=== PATIENT | female | born 1985 | race Two or more races ===

== ENCOUNTER → 2020-02-18 08:33 | Outpatient (BNVA) | payer OTHER, SELFPAY | PROVIDERS: Family Provider Nurse Practitioner; PCP Nurse Practitioner; Visit Provider Family Medicine | DX: E03.9 Hypothyroidism, unspecified (principal) | CPT/HCPCS: 80053; 84443; 85025 ==

== ENCOUNTER → 2021-03-22 13:24 | Outpatient (BNVA) | payer OTHER, SELFPAY | PROVIDERS: Family Provider Nurse Practitioner; PCP Family Medicine; Visit Provider Family Medicine | DX: Z13.6 Encounter for screening for cardiovascular disorders (principal); E03.9 Hypothyroidism, unspecified; M77.12 Lateral epicondylitis, left elbow | CPT/HCPCS: 80053; 84439; 84443; 85025 ==

== ENCOUNTER → 2021-05-31 11:41 | Outpatient (BNVA) | payer OTHER, SELFPAY | PROVIDERS: Family Provider Nurse Practitioner; PCP Family Medicine; Visit Provider Family Medicine | DX: E03.9 Hypothyroidism, unspecified (principal) | CPT/HCPCS: 84439; 84443 ==

== ENCOUNTER 2022-02-21 10:11 | Outpatient (CLI) | payer OTHER, SELFPAY ==
--- NOTE | 2022-02-21 10:28 | XRR_ITS ---
PROCEDURE INFORMATION: Exam: XR Left Knee Exam date and time: 02/21/2022 10:28 AM Age: 36 years old Clinical indication: Left; Patient HX: Lt knee pain when walking x 2wks ago, inflammation off and on for awhile getting worse. Anteriorly around patella. Most of the pressure is distal to the patella on lateral side and shoots back to the posterior side laterally; Additional info: Acute left knee pain TECHNIQUE: Imaging protocol: Radiologic exam of the Left knee. Views: 3 views. COMPARISON: No relevant prior studies available. FINDINGS: Bones/joints: Normal. Soft tissues: Normal. XR/XR knee LT 3V* [id number] IMPRESSION: No acute findings.
== END 2022-02-21 10:12 | disposition home or self-care (01) ==
LOC: RAD 10:18
PROVIDERS: PCP Family Medicine; Visit Provider Family Medicine
DX: Z13.6 Encounter for screening for cardiovascular disorders (principal); M25.562 Pain in left knee; E03.9 Hypothyroidism, unspecified
CPT/HCPCS: 73562; 80053; 84439; 84443; 85025

== ENCOUNTER 2023-10-22 15:01 | Outpatient (CLI) | payer OTHER, SELFPAY ==
--- NOTE | 2023-10-22 15:09 | USR_ITS ---
PROCEDURE INFORMATION: Exam: US Soft Tissue Head and Neck, Thyroid Exam date and time: 10/22/2023 3:35 PM Age: 37 years old Clinical indication: Abnormal findings; Abnormal thyroid lab test; Additional info: Acquired hypothyroidism TECHNIQUE: Imaging protocol: Real-time ultrasound scan of the neck with image documentation. Exam focused on the thyroid. COMPARISON: No relevant prior studies available. FINDINGS: Right thyroid lobe: No nodules. Left thyroid lobe: No nodules. Isthmus: No nodules. Other findings: Both thyroid lobes demonstrate a heterogeneous appearance consistent with chronic thyroiditis. I see no dominant mass or cyst. US/US thyroid [id number] IMPRESSION: Findings consistent with chronic thyroiditis
== END 2023-10-22 15:02 | disposition home or self-care (01) ==
LOC: RAD 15:01
PROVIDERS: PCP Family Medicine; Visit Provider Nurse Practitioner Family
DX: E09.9 Drug or chemical induced diabetes mellitus without complications (principal)
CPT/HCPCS: 76536

== ENCOUNTER → 2024-01-14 09:37 | Outpatient (BNVA) | payer OTHER, SELFPAY | PROVIDERS: PCP Family Medicine; Referring Provider Nurse Practitioner Family; Visit Provider Internal Medicine | DX: E03.9 Hypothyroidism, unspecified (principal) | CPT/HCPCS: 36415; 84439; 84443; 86376; 86800 ==

== ENCOUNTER 2024-03-15 15:14 | Outpatient (CLI) | payer OTHER, SELFPAY ==
[2024-03-15 16:50] LABS: Thyroid Stimulating Hormone 0.19 uIU/mL (0.27-4.20)
[2024-03-15 17:14] LABS: Free T4 Free Thyroxine 1.76 ng/dL (0.82-1.77)
== END 2024-03-15 15:15 | disposition home or self-care (01) ==
LOC: LAB 15:25
PROVIDERS: PCP Family Medicine; Visit Provider Internal Medicine
DX: E03.9 Hypothyroidism, unspecified (principal)
CPT/HCPCS: 36415; 84439; 84443

== ENCOUNTER → 2024-05-17 13:58 | Outpatient (BNVA) | payer OTHER, SELFPAY | PROVIDERS: PCP Family Medicine; Visit Provider Internal Medicine | DX: E03.9 Hypothyroidism, unspecified (principal) | CPT/HCPCS: 84439; 84443 ==

== ENCOUNTER → 2024-10-05 09:31 | Outpatient (BNVA) | payer OTHER, SELFPAY | PROVIDERS: PCP Family Medicine; Visit Provider Internal Medicine | DX: E03.9 Hypothyroidism, unspecified (principal) | CPT/HCPCS: 84439; 84443 ==

== ENCOUNTER → 2025-04-11 11:46 | Outpatient (BNVA) | payer OTHER, SELFPAY | PROVIDERS: PCP Family Medicine; Visit Provider Internal Medicine | DX: E03.9 Hypothyroidism, unspecified (principal); E06.9 Thyroiditis, unspecified; T78.40XA Allergy, unspecified, initial encounter; X58.XXXA Exposure to other specified factors, initial encounter | CPT/HCPCS: 84439; 84443 ==

== ENCOUNTER → 2025-05-23 15:00 | Outpatient (BNVA) | payer OTHER, SELFPAY | PROVIDERS: PCP Family Medicine; Visit Provider Internal Medicine | DX: R63.5 Abnormal weight gain (principal); R53.83 Other fatigue; T78.40XA Allergy, unspecified, initial encounter; E06.9 Thyroiditis, unspecified; E03.9 Hypothyroidism, unspecified | CPT/HCPCS: 84439; 84443; 84480 ==

== ENCOUNTER → 2025-08-01 12:51 | Outpatient (BNVA) | payer OTHER, SELFPAY | PROVIDERS: PCP Family Medicine; Visit Provider Internal Medicine | DX: E03.9 Hypothyroidism, unspecified (principal) | CPT/HCPCS: 84443; 86364 ==